=== PATIENT | female | born 1935 | race Caucasian/White ===

== ENCOUNTER 2018-08-14 22:11 | Emergency (ER) | payer BC ==
--- NOTE | 2018-08-14 22:30 | Emergency Department Record ---
History of Present Illness - General Chief Complaint: Cough Stated Complaint: COUGH, HE Time Seen by Provider: 08/14/18 22:28 Source: Patient, Family (son) - History of Present Illness Initial Comments: The patient and her son state that she has had a cough for a week. She states it is worse than her typical common cold symptoms because she is coughing so much she has to get upright to stop her coughing. She has clear rhinorrhea, no sore throat, no chest pain or heaviness. She states she is slightly short of breath only with coughing spasms. Her son reports that she came home from [facility] and was wheezing and short of breath. The patient denies history of pneumonia, ND, CVA, hypertension or DM. She has never had blood clots to her legs or lungs, however her ankles are chronically swollen, right greater than left, and this is not new. She has never smoked. She also reports one episode of diarrhea this evening. MD Complaint: Cough, Rhinorrhea - Related Data Home Medications Medication Instructions Recorded Confirmed Last Taken Multivitamin [Multiple Vitamins] 1 each PO DAILY 08/14/18 08/14/18 08/14/18 Previous Rx's Medication Instructions Recorded Azithromycin [Zithromax] 250 mg PO DAILY #4 tab 08/15/18 Allergies Allergy/AdvReac Type Severity Reaction Status Date / Time No Known Drug Allergies Allergy Verified 08/14/18 22:30 Review of Systems Reviewed: No additional complaints except as noted below Constitutional: Reports: As per HPI. Denies: Chills, Fever, Malaise, Night sweats, Weakness, Weight change Eyes: Reports: As per HPI. Denies: Eye discharge, Eye pain, Photophobia, Vision change ENT: Reports: As per HPI. Denies: Congestion, Dental pain, Ear pain, Epistaxis , Hearing loss, Throat pain Respiratory: Reports: As per HPI. Denies: Cough, Dyspnea, Hemoptysis, Stridor, Wheezes Cardiovascular: Reports: As per HPI. Denies: Arrhythmia, Chest pain, Dyspnea on exertion, Edema, Murmurs, Orthopnea, Palpitations, Paroxysmal nocturnal dyspnea, Rheumatic Fever, Syncope Endocrine: Reports: As per HPI. Denies: Fatigue, Heat or cold intolerance, Polydipsia, Polyuria Gastrointestinal: Reports: As per HPI. Denies: Abdominal pain, Constipation, Diarrhea, Hematemesis, Hematochezia, Melena, Nausea, Vomiting Genitourinary: Reports: As per HPI. Denies: Abnormal menses, Discharge, Dyspareunia, Dysuria, Frequency, Hematuria, Incontinence, Retention, Urgency Musculoskeletal: Reports: As per HPI. Denies: Arthralgia, Back pain, Gout, Joint swelling, Myalgia, Neck pain Skin: Reports: As per HPI. Denies: Bruising, Change in color, Change in hair/ nails, Lesions, Pruritus, Rash Neurological: Reports: As per HPI. Denies: Abnormal gait, Confusion, Headache, Numbness, Paresthesias, Seizure, Tingling, Tremors, Vertigo, Weakness Psychiatric: Reports: As per HPI. Denies: Anxiety, Auditory hallucinations, Depression, Homicidal thoughts, Suicidal thoughts, Visual hallucinations Hematological/Lymphatic: Reports: As per HPI. Denies: Anemia, Blood Clots, Easy bleeding, Easy bruising, Swollen glands Past Medical History - SOCIAL HISTORY Smoking Status: Never smoker Physical Exam - General General Appearance: Alert, Oriented x3, Cooperative, No acute distress (No disress unless coughing which produces increased wheezing) - Head Head exam: Normal inspection - Eye Eye exam: Normal appearance, PERRL, EOMI. negative: Conjunctival injection, Nystagmus Pupils: Normal accommodation - ENT ENT exam: Normal exam, Mucous membranes moist, Normal external ear exam, Normal orophraynx, TM's normal bilaterally Ear exam: Normal external inspection. negative: External canal tenderness Nasal Exam: Normal inspection. negative: Discharge, Sinus tenderness Mouth exam: Normal external inspection, Tongue normal Teeth exam: Normal inspection. negative: Dental caries Throat exam: Normal inspection. negative: Tonsillar erythema, Tonsillar exudate - Neck Neck exam: Normal inspection, Full ROM. negative: Lymphadenopathy, Meningismus , Tenderness - Respiratory Respiratory exam: Decreased breath sounds, Prolonged expiratory, Wheezes ( expiratory). negative: Accessory muscle use, Chest wall tenderness, Respiratory distress - Cardiovascular Cardiovascular Exam: Regular rate, Normal rhythm, Normal heart sounds - GI/Abdominal GI/Abdominal exam: Soft, Normal bowel sounds. negative: Tenderness - Rectal Rectal exam: Deferred - exam: Deferred - Extremities Extremities exam: Normal inspection, Full ROM, Normal capillary refill, Pedal edema (chronc bilateral pitting edema (unchanged per patient).). negative: Calf tenderness, Tenderness - Back Back exam: Reports: Normal inspection, Full ROM. Denies: Muscle spasm, Rash noted, Tenderness - Neurological Neurological exam: Alert, Normal gait, Oriented X3, Reflexes normal - Psychiatric Psychiatric exam: Normal affect, Normal mood - Skin Skin exam: Dry, Intact, Normal color, Warm Course Vital Signs 08/14/18 22:19 Temperature 98.4 F Pulse Rate [ 96 H Left] Respiratory 16 Rate Blood Pressure 189/100 [Left Arm] Pulse Ox 94 L - Reevaluation(s) Reevaluation #1: Patient returned from CT. Antibiotics infusing, blood pressure improved, RA sats now 96%. Patient is feeling much better. 08/15/18 00:50 08/15/18 01:38 Medical Decision Making - Management Options MDM Management: No Additional Work-up Planned - Data Complexity MDM Data: Labs Ordered and/or Reviewed (BNP 37, trop <0.01, d dimer 0.60 ), X- Ray Ordered and/or Reviewed (CTA per [facility]: Neg PE. RML collapse, cannot exclude pneumonitis; ring enhancing lesion posterior R liver lobe, FU CT or MRI 6 months. Additional nonacute findings also noted on full reeport.), EKG Ordered and/or Reviewed - Lab Data Result diagrams: 08/14/18 23:35 08/14/18 23:35 - EKG Data -: EKG Interpreted by Me EKG: No Acute Changes (NSR 84/min; nl axis. IVCD, no ST elevation or acute changes. no prior.) Disposition Disposition: Discharge Clinical Impression: RML pneumonia Qualifiers: Pneumonia type: due to unspecified organism Qualified Code(s): J18.1 - Lobar pneumonia, unspecified organism Disposition: Home, Self-Care Condition: (2) Stable Instructions: Cold Symptoms (ED), Pneumonitis (ED) Additional Instructions: Continue zithromax as directed until gone. Albuterol Inhaler with Spacer 2 puffs two times daily to 4 times daily. Tylenol alternated with ibuprofen as directed as needed for fevers or pain. Follow up with PCP as previously arranged in office within the week for follow up and for re heck of blood pressure. PCP referral as requested for follow up locally in the future. Prescriptions: Azithromycin [Zithromax] 250 mg PO DAILY #4 tab Forms: Patient Portal Access Quality - Quality Measures Quality Measures: N/A - Blood Pressure Screening Does Patient Have Any of the Following: No Blood Pressure Classification: Hypertensive Reading Systolic Measurement: 173 Diastolic Measurement: 68 Screening for High Blood Pressure: < First Hypertensive BP, F/U Documented > [ G8950] First Hypertensive Follow-up Interventions: Follow-up with rescreen GT 1 day and LT 4 weeks., Referral to alternative/primary care provider.
[2018-08-14] MEDS ORDERED: IPRATROPIUM/ALBUTEROL (0.5MG/3MG) NEB INH ONE (23:08)
[2018-08-14 23:38] LABS: URINE APPEARANCE CLOUDY; URINE BILIRUBIN NEGATIVE (NEGATIVE); URINE BLOOD MODERATE (NEGATIVE); URINE COLOR YELLOW; URINE GLUCOSE (UA) NEGATIVE (NEGATIVE); URINE KETONE NEGATIVE (NEGATIVE); URINE LEUKOCYTE ESTERASE MODERATE (NEGATIVE); URINE NITRITE POSITIVE (NEGATIVE); URINE UROBILINOGEN 0.2 E.U./dL (0.20 - 1.00)
[2018-08-14 23:41] LABS: BASO % 1.1 % (0-6); EOS % 6.7 % (0-6); GRAN % 66.1 % (47-80); HEMATOCRIT 44.6 % (35.0-47.0); LYMPH % 14.8 % (16-45); MEAN CELL VOLUME 86.6 fl (81-97); MEAN CORPUSCULAR HEMOGLOBIN 29.1 pg (27-33); MEAN CORPUSCULAR HGB CONC 33.6 g/dl (32-36); MEAN PLATELET VOLUME 9.9 fl (7.4-10.4); MONO % 11.3 % (0-9); PLATELET COUNT 265 K/uL (130-400); RED BLOOD COUNT 5.15 M/uL (3.80-5.40); RED CELL DISTRIBUTION WIDTH 13.3 % (11.5-14.5); WHITE BLOOD COUNT W/O DIFF 6.6 K/uL (4.2-12.2)
[2018-08-14 23:45] LABS: URINE BACTERIA 3+; URINE RBC 0 - 2 (NONE SEEN)
[2018-08-14] MEDS ORDERED: 0.9 % SODIUM CHLORIDE 500ML 500 ML IV SCH (23:45)
[2018-08-14 23:46] LABS: BLOOD UREA NITROGEN 15 mg/dL (8-23); CREATININE 0.8 mg/dL (0.5-0.9); EST GLOMERULAR FILTRATION RATE > 60 mL/min
[2018-08-14 23:47] LABS: TOTAL PROTEIN 7.3 g/dL (6.6-8.7)
[2018-08-14 23:49] LABS: GLUCOSE,RANDOM 127 mg/dL (74-109)
[2018-08-14 23:51] LABS: ALT/SGPT 41 U/L (<33)
[2018-08-14 23:52] LABS: ALB/GLOB RATIO 1.7 (1.1-1.8); ALBUMIN 4.6 g/dL (4.0-5.0); ALKALINE PHOSPHATASE 75 U/L (35-104); AST/SGOT 32 U/L (10.0-35.0); INR 1.1; PARTIAL THROMBOPLASTIN TIME 27.5 SECONDS (24.5-39.1); PROTHROMBIN TIME (PATIENT) 10.6 SECONDS (9.5-12.1)
[2018-08-14 23:54] LABS: NTpro B-NATRIURETIC PEPTIDE 37.83 pg/mL (<450)
[2018-08-14] MEDS ORDERED: CEFTRIAXONE SODIUM 2 GM in 0.9 % SODIUM CHLORIDE 100ML 100 ML IVPB ONE (23:55)
[2018-08-14 23:56] LABS: INFLUENZA A NEGATIVE (NEGATIVE); INFLUENZA B NEGATIVE (NEGATIVE)
[2018-08-15] MEDS ORDERED: ALBUTEROL HFA 8 GM INHALER INH ONE (01:25)
[2018-08-15] MEDS ORDERED: AZITHROMYCIN 500 MG TABLET PO ONE (01:25)
== END 2018-08-15 02:05 | disposition home or self-care (01) ==
LOC: ER 22:11
DX: J18.1 Lobar pneumonia, unspecified organism (principal); R60.0 Localized edema; R19.7 Diarrhea, unspecified; R79.89 Other specified abnormal findings of blood chemistry; K76.9 Liver disease, unspecified
CPT/HCPCS: 71275; 80053; 81001; 83880; 84484; 85025; 85379; 85610; 85730; 87400; 93005; 93010; 94640; 94664; 96374; 99284; J7040

== ENCOUNTER 2018-09-03 13:04 | Emergency (ER) | payer BC ==
[2018-09-03] MEDS ORDERED: SODIUM CHLORIDE 0.9% 500 ML IV ONE (13:28)
[2018-09-03 13:45] LABS: HEMATOCRIT 44.2 % (35.0-47.0); HEMOGLOBIN 15.2 gm/dl (11.6-16.0); MEAN CELL VOLUME 84.5 fl (81-97); MEAN CORPUSCULAR HEMOGLOBIN 29.1 pg (27-33); MEAN CORPUSCULAR HGB CONC 34.4 g/dl (32-36); MEAN PLATELET VOLUME 10.6 fl (7.4-10.4); PLATELET COUNT 303 K/uL (130-400); RED BLOOD COUNT 5.23 M/uL (3.80-5.40); RED CELL DISTRIBUTION WIDTH 12.9 % (11.5-14.5); WHITE BLOOD COUNT W/O DIFF 12.4 K/uL (4.2-12.2)
[2018-09-03 13:57] LABS: BLOOD UREA NITROGEN 18 mg/dL (8-23); CREATININE 0.8 mg/dL (0.5-0.9); EST GLOMERULAR FILTRATION RATE > 60 mL/min
[2018-09-03 13:58] LABS: LIPASE 34 U/L (13-60); TOTAL PROTEIN 6.9 g/dL (6.6-8.7)
[2018-09-03 14:00] LABS: GLUCOSE,RANDOM 161 mg/dL (74-109)
[2018-09-03 14:02] LABS: ALT/SGPT 42 U/L (<33)
[2018-09-03 14:03] LABS: ALB/GLOB RATIO 1.8 (1.1-1.8); ALBUMIN 4.4 g/dL (4.0-5.0); ALKALINE PHOSPHATASE 71 U/L (35-104); AST/SGOT 31 U/L (10.0-35.0)
[2018-09-03] MEDS ORDERED: MORPHINE SULFATE 10 MG/ML VIAL IVP ONE (14:08)
[2018-09-03] MEDS ORDERED: ONDANSETRON HCL IV 4 MG/2 ML VIAL IVP ONE ×2 (14:12→18:18)
--- NOTE | 2018-09-03 16:18 | Emergency Department Record ---
History of Present Illness - General Chief Complaint: Abdominal Pain Stated Complaint: ABDOMINAL PAIN Time Seen by Provider: 09/03/18 13:25 Source: Patient, Family Mode of Arrival: Ambulatory Limitations: No limitations - History of Present Illness Initial Comments: pt c/o right ap and diarrhea. she has nausea. she was here a few weeks ago and had achest cta with multiple findings includdin a mass on th thyroid that is pushing on her trachea and almost total occlusion of her r bronchus Complaint: Abdominal pain Onset/Timin -: Hour(s) Location: Other Quality: Aching Consistency: Intermittent Improves With: Nothing Worsens With: Nothing Associated Symptoms: Diarrhea, Nausea, Vomiting - Related Data Patient : No Home Medications Medication Instructions Recorded Confirmed Last Taken Omeprazole [Prilosec] 20 mg PO DAILY 09/03/18 09/03/18 09/02/18 Allergies Allergy/AdvReac Type Severity Reaction Status Date / Time No Known Drug Allergies Allergy Verified 09/03/18 13:08 Travel Screening - Travel/Exposure Within Last 30 Days Have you traveled within the last 30 days?: No - Travel/Exposure Within Last Year Have you traveled outside the [place] in the last year?: No - Additonal Travel Details Have you been exposed to anyone with a communicable illness?: No - Travel Symptoms Symptom Screening: None Review of Systems Reviewed: No additional complaints except as noted below Constitutional: Reports: As per HPI. Denies: Chills, Fever, Malaise, Night sweats, Weakness, Weight change Eyes: Reports: As per HPI. Denies: Eye discharge, Eye pain, Photophobia, Vision change ENT: Reports: As per HPI, Throat pain. Denies: Congestion, Dental pain, Ear pain, Epistaxis, Hearing loss Respiratory: Reports: As per HPI, Dyspnea. Denies: Cough, Hemoptysis, Stridor, Wheezes Cardiovascular: Reports: As per HPI. Denies: Arrhythmia, Chest pain, Dyspnea on exertion, Edema, Murmurs, Orthopnea, Palpitations, Paroxysmal nocturnal dyspnea, Rheumatic Fever, Syncope Endocrine: Reports: As per HPI. Denies: Fatigue, Heat or cold intolerance, Polydipsia, Polyuria Gastrointestinal: Reports: As per HPI, Abdominal pain, Diarrhea, Nausea, Vomiting. Denies: Constipation, Hematemesis, Hematochezia, Melena Genitourinary: Reports: As per HPI. Denies: Abnormal menses, Discharge, Dyspareunia, Dysuria, Frequency, Hematuria, Incontinence, Retention, Urgency Musculoskeletal: Reports: As per HPI. Denies: Arthralgia, Back pain, Gout, Joint swelling, Myalgia, Neck pain Skin: Reports: As per HPI. Denies: Bruising, Change in color, Change in hair/ nails, Lesions, Pruritus, Rash Neurological: Reports: As per HPI. Denies: Abnormal gait, Confusion, Headache, Numbness, Paresthesias, Seizure, Tingling, Tremors, Vertigo, Weakness Psychiatric: Reports: As per HPI. Denies: Anxiety, Auditory hallucinations, Depression, Homicidal thoughts, Suicidal thoughts, Visual hallucinations Hematological/Lymphatic: Reports: As per HPI. Denies: Anemia, Blood Clots, Easy bleeding, Easy bruising, Swollen glands Past Medical History - SOCIAL HISTORY Smoking Status: Never smoker Alcohol Use: None Drug Use: None - RESPIRATORY Hx Respiratory Disorders: No - CARDIOVASCULAR Hx Cardio Disorders: No - NEURO Hx Neuro Disorders: No - GI Hx GI Disorders: No - Hx Genitourinary Disorders: No - ENDOCRINE Hx Endocrine Disorders: No - MUSCULOSKELETAL Hx Musculoskeletal Disorders: No - PSYCH Hx Psych Problems: Yes Hx Anxiety: Yes - HEMATOLOGY/ONCOLOGY Hx Hematology/Oncology Disorders: No Family Medical History Any Significant Family History?: Yes Hx Heart Disease: Grandparents Physical Exam - General General Appearance: Alert, Oriented x3, Cooperative, Mild distress - Head Head exam: Normal inspection - Eye Eye exam: Normal appearance, PERRL, EOMI Pupils: Normal accommodation - ENT ENT exam: Normal exam, Mucous membranes moist, Normal external ear exam, Normal orophraynx Ear exam: Normal external inspection. negative: External canal tenderness Nasal Exam: Normal inspection. negative: Discharge, Sinus tenderness Mouth exam: Normal external inspection, Tongue normal Teeth exam: Normal inspection. negative: Dental caries Throat exam: Normal inspection. negative: Tonsillar erythema, Tonsillar exudate - Neck Neck exam: Normal inspection, Full ROM. negative: Tenderness - Respiratory Respiratory exam: Normal lung sounds bilaterally. negative: Respiratory distress - Cardiovascular Cardiovascular Exam: Regular rate, Normal rhythm, Normal heart sounds - GI/Abdominal GI/Abdominal exam: Soft, Normal bowel sounds, Tenderness (ruq and rlq) - Rectal Rectal exam: Deferred - exam: Deferred - Extremities Extremities exam: Normal inspection, Full ROM, Normal capillary refill. negative: Tenderness - Back Back exam: Reports: Normal inspection, Full ROM. Denies: Muscle spasm, Rash noted, Tenderness - Neurological Neurological exam: Alert, CN II-XII intact, Normal gait, Oriented X3 - Psychiatric Psychiatric exam: Normal affect, Normal mood - Skin Skin exam: Dry, Intact, Normal color, Warm Course Vital Signs 09/03/18 09/03/18 13:10 13:47 Temperature 98.4 F 98.4 F Pulse Rate 83 83 Respiratory 20 20 Rate Blood Pressure 202/109 Pulse Ox 95 95 Medical Decision Making - Lab Data Result diagrams: 09/03/18 13:25 09/03/18 13:25 Lab Results 09/03/18 09/03/18 Range/Units 13:25 13:25 WBC 12.4 H (4.2-12.2) K/uL RBC 5.23 (3.80-5.40) M/uL Hgb 15.2 (11.6-16.0) gm/dl Hct 44.2 (35.0-47.0) % MCV 84.5 (81-97) fl MCH 29.1 (27-33) pg MCHC 34.4 (32-36) g/dl RDW 12.9 (11.5-14.5) % Plt Count 303 (130-400) K/uL MPV 10.6 H (7.4-10.4) fl Neutrophils % 87.0 H (47-80) % Eosinophils % Not Reportable Basophils % Not Reportable Lymphocytes 9.0 L (16-45) % Monocytes 3.0 (0-9) % Eosinophil Count 1.0 (0-6) % Sodium 141 (136-145) mmol/L Potassium 3.8 (3.4-4.5) mmol/L Chloride 106 (98-107) mmol/L Carbon Dioxide 23.0 (22-29) mmol/L Anion Gap 12.0 (7-16) BUN 18 (8-23) mg/dL Creatinine 0.8 (0.5-0.9) mg/dL Estimated GFR > 60 mL/min Random Glucose 161 H (74-109) mg/dL Calcium 9.4 (8.8-10.2) mg/dL Total Bilirubin 0.40 (0.2-1.0) mg/dL AST 31 (10.0-35.0) U/L ALT 42 H (<33) U/L Alkaline Phosphatase 71 (35-104) U/L Total Protein 6.9 (6.6-8.7) g/dL Albumin 4.4 (4.0-5.0) g/dL Globulin 2.5 (1.4-4.8) gm/dL Albumin/Globulin Ratio 1.8 (1.1-1.8) Lipase 34 (13-60) U/L Disposition Disposition: Transfer Clinical Impression: Thyroid mass of unclear etiology, Bronchial obstruction, Pyelonephritis Hydronephrosis Qualifiers: Hydronephrosis type: with ureteral calculous obstruction Qualified Code(s): N13.2 - Hydronephrosis with renal and ureteral calculous obstruction Hypertension Qualifiers: Hypertension type: unspecified Qualified Code(s): I10 - Essential (primary) hypertension Disposition: Acute Care Hospital Transfer Transfer To: [facility] Reason For Transfer: needs, urologist, sterilization tech, ENT Accepting Physician: dr hernandez Time Discussed w/Accepting Physician: 17:02 Quality - Quality Measures Quality Measures: N/A - Blood Pressure Screening Does Patient Have Any of the Following: No Blood Pressure Classification: Hypertensive Reading Systolic Measurement: 202 Diastolic Measurement: 109 Screening for High Blood Pressure: < First Hypertensive BP, F/U Documented > [ G8950] First Hypertensive Follow-up Interventions: Follow-up with rescreen GT 1 day and LT 4 weeks.
[2018-09-03] MEDS ORDERED: ACETAMINOPHEN 1,000 MG/100 ML BTL IVPB ONE (16:24)
[2018-09-03] MEDS ORDERED: CLONIDINE HCL 0.1 MG TABLET PO ONE (16:44)
[2018-09-03] MEDS ORDERED: METHYLPREDNISOLONE PF 125MG/VIAL IVP ONE (16:57)
[2018-09-03 17:46] LABS: URINE APPEARANCE CLEAR; URINE BILIRUBIN NEGATIVE (NEGATIVE); URINE BLOOD SMALL (NEGATIVE); URINE COLOR YELLOW; URINE GLUCOSE (UA) NEGATIVE (NEGATIVE); URINE KETONE NEGATIVE (NEGATIVE); URINE LEUKOCYTE ESTERASE TRACE (NEGATIVE); URINE NITRITE POSITIVE (NEGATIVE); URINE UROBILINOGEN 0.2 E.U./dL (0.20 - 1.00)
[2018-09-03 17:57] LABS: URINE WBC 16 - 20 (0-2/hpf)
[2018-09-03 17:58] LABS: URINE BACTERIA 3+; URINE EPITHELIAL CELLS 0 - 2 (FEW)
[2018-09-03] MEDS ORDERED: CIPROFLOXACIN LACTATE/D5W 400 MG/200 ML BAG IVPB ONE (18:02)
--- NOTE | 2018-09-05 12:40 | CT SCAN REPORT ---
EXAM: CT OF THE ABDOMEN AND PELVIS WITH AND WITHOUT CONTRAST HISTORY: RIGHT SIDED ABDOMINAL PAIN, DIARRHEA, INCIDENTAL LIVER LESION ON RECENT CTA CHEST. TECHNIQUE: CT of the abdomen and pelvis was performed with 100 ml Omnipaque 300 intravenous contrast as well as oral contrast. Comparison: CTA chest 08/15/18. FINDINGS: Persistent right middle lobe atelectasis with associated calcifications, similar from prior CTA. Mild dependent atelectasis in both lower lobes. Small hiatal hernia. Low hepatic attenuation on noncontrast images, compatible with steatosis. Enhancing 12 mm lesion in the right hepatic dome, predominantly peripheral arterial enhancement with retained contrast on delayed phase imaging, most suggestive of a hemangioma. Scattered calcified liver granulomas. Unremarkable appearance of the gallbladder, spleen, and right adrenal gland. Stable left adrenal adenoma. Moderate right hydronephrosis. No left hydronephrosis. Bilateral intrarenal calculi, measuring up to 5 mm on the right and 4 mm on the left. At the right ureteral vesicular junction there is a 3 mm calcification.l Prominent soft tissue density. Bladder wall thickening at the level of the right ureteral vesicular junction. A fat density is noted along the anterior bladder wall, of uncertain significance. Underdistended, borderline thickened appearance of the colon extending from the proximal transverse colon through the rectum. Likely normal appendix. The stomach and small bowel are not dilated. No free air. Diffuse calcification of the aortoiliac arterial access without aneurysm or dissection. Multilevel thoracolumbar spine degenerative findings. Bilateral femoroacetabular joint arthrosis. No acute osseous findings. Small ovoid 11 mm lucent lesion in the right iliac bone (series 5 image 121). IMPRESSION: 1. MODERATE RIGHT HYDROURETERONEPHROSIS WITH LIKELY SMALL 3 MM CALCULUS AT THE RIGHT URETERAL VESICULAR JUNCTION. PROMINENT SOFT TISSUE THICKENING AT THE RIGHT UVJ IS NOTED, AND A BLADDER WALL NEOPLASM IS NOT EXCLUDED. RECOMMEND FURTHER EVALUATION WITH CYSTOSCOPY. 2. ADDITIONAL BILATERAL NONOBSTRUCTING INTRARENAL CALCULI. 3. SUGGESTION OF MILD NONSPECIFIC COLITIS EXTENDING FROM THE PROXIMAL TRANSVERSE COLON THROUGH THE RECTUM. 4. HEPATIC STEATOSIS. ENHANCING HEPATIC DOME LESION HAS FEATURES MOST SUGGESTIVE OF A HEMANGIOMA. 5. FLUID WITHIN THE UTERINE ENDOMETRIAL CAVITY, LIKELY ABNORMAL FOR PATIENT AGE. FURTHER GYNECOLOGIC EVALUATION IS RECOMMENDED. 6. PERSISTENT RIGHT MIDDLE LOBE OBSTRUCTIVE ATELECTASIS, SEEN ON CTA CHEST FROM 08/15/18. FURTHER EVALUATION WITH BRONCHOSCOPY MAY BE OF BENEFIT. 7. INDETERMINATE 11 MM LUCENT LESION IN THE RIGHT ILIAC BONE. 8. STABLE LEFT ADRENAL ADENOMA. 9. SMALL HIATAL HERNIA. JOB NUMBER: [id number] [facility]
== END 2018-09-03 19:37 | disposition short-term general hospital (02) ==
LOC: ER 13:04
DX: N13.6 Pyonephrosis (principal); J98.09 Other diseases of bronchus, not elsewhere classified; E07.9 Disorder of thyroid, unspecified; R10.31 Right lower quadrant pain; R19.7 Diarrhea, unspecified; R11.0 Nausea; I10 Essential (primary) hypertension
CPT/HCPCS: 74178; 80053; 81001; 83690; 85027; 96365; 96366; 96375; 96376; 99285; J2270; J2405; J2930

== ENCOUNTER 2018-12-13 11:16 | Emergency (ER) | payer BC ==
--- NOTE | 2018-12-13 11:35 | Emergency Department Record ---
History of Present Illness - General Chief complaint: Female Urogenital Problem Stated complaint: URINARY TRACT INFECTION Time Seen by Provider: 12/13/18 11:33 Source: Patient, RN notes reviewed Mode of Arrival: Ambulatory - History of Present Illness Initial comments: patient is here because son is worried about spots on her face white spots that don't look like mersa on her face and her lower lip is swollen and she has a scrap on the chest which doesn't look infected. Talked about MERSA with son and she has a complicated case of sepsis and treated at [facility] and stents placed in the right kidney and than a replacement stent placed last sunday by Dr Stern which will be removed December 18 per son. Patient only able to remember two of three items at the bedside after 5 minutes. Moving all extremities appropriately and to commands and son is answering all the questions for her. - Related Data Home Medications Medication Instructions Recorded Confirmed Last Taken Fluconazole [Diflucan] 100 mg PO DAILY 12/13/18 12/13/18 Unknown Furosemide [Lasix] 40 mg PO DAILY 12/13/18 12/13/18 Unknown Gluc Alonso/Chondro Alonso A/Vit C/Mn 1 each PO DAILY 12/13/18 12/13/18 Unknown [Glucosamine-Chondroitin Cap] Hydralazine HCl 50 mg PO BID 12/13/18 12/13/18 Unknown Metoprolol Succinate 50 mg PO DAILY 12/13/18 12/13/18 Unknown Nitrofurantoin Macrocrystal 100 mg PO BID 12/13/18 12/13/18 Unknown [Nitrofurantoin] Potassium Chloride [Klor-Con] 20 meq PO DAILY 12/13/18 12/13/18 Unknown Tramadol HCl [Ultram] 50 mg PO BID 12/13/18 12/13/18 Unknown Previous Rx's Medication Instructions Recorded Acyclovir [Zovirax] 1 apply TP 5XD #15 gm 12/13/18 Doxycycline Hyclate 100 mg PO BID #20 cap 12/13/18 Allergies Allergy/AdvReac Type Severity Reaction Status Date / Time amlodipine [From [facility]] Allergy PT UNSURE Verified 12/13/18 12:07 OF REACTION lisinopril Allergy PT UNSURE Verified 12/13/18 12:07 OF REACTION Past Medical History - SOCIAL HISTORY Smoking Status: Never smoker Drug Use: None - RESPIRATORY Hx Respiratory Disorders: No - CARDIOVASCULAR Hx Cardio Disorders: No - NEURO Hx Neuro Disorders: No - GI Hx GI Disorders: No - Hx Genitourinary Disorders: No - ENDOCRINE Hx Endocrine Disorders: No - MUSCULOSKELETAL Hx Musculoskeletal Disorders: No - PSYCH Hx Psych Problems: Yes Hx Anxiety: Yes - HEMATOLOGY/ONCOLOGY Hx Hematology/Oncology Disorders: No Family Medical History Hx Heart Disease: Grandparents Physical Exam - General General Appearance: Alert, Oriented x3, Cooperative, No acute distress - Head Head exam: Normal inspection - Eye Eye exam: Normal appearance, PERRL Pupils: Normal accommodation - ENT ENT exam: Normal exam, Mucous membranes moist, Normal external ear exam, Normal orophraynx, TM's normal bilaterally Ear exam: Normal external inspection. negative: External canal tenderness Nasal Exam: Normal inspection. negative: Discharge, Sinus tenderness Mouth exam: Normal external inspection, Tongue normal Teeth exam: Normal inspection. negative: Dental caries Throat exam: Normal inspection. negative: Tonsillar erythema, Tonsillar exudate - Neck Neck exam: Normal inspection, Full ROM. negative: Tenderness - Respiratory Respiratory exam: Normal lung sounds bilaterally. negative: Respiratory distress - Cardiovascular Cardiovascular Exam: Regular rate, Normal rhythm, Normal heart sounds - GI/Abdominal GI/Abdominal exam: Soft, Normal bowel sounds. negative: Tenderness - Rectal Rectal exam: Deferred - exam: Deferred - Extremities Extremities exam: Normal inspection, Full ROM, Normal capillary refill. negative: Tenderness - Back Back exam: Reports: Normal inspection, Full ROM. Denies: Muscle spasm, Rash noted, Tenderness - Neurological Neurological exam: Alert, Normal gait, Oriented X3, Reflexes normal - Psychiatric Psychiatric exam: Normal affect, Normal mood - Skin Skin exam: Dry, Intact, Normal color, Warm Course - Reevaluation(s) Reevaluation #1: reviewed her urine from 11/15/2018 and MRSA sensitive to nitrofurantoin and te tracyline and linezolid. Patient not toxix and she is moving around appropriately with signs of dementia. She doesn't appear toxic at this time. will add doxy 100 mg bid with the nitrofurantoin to make sure the staph is covered and have her keepher appointment with Dr Stern urologguerda. If worse will d irect her to [facility] 12/13/18 14:09 12/13/18 14:11 Medical Decision Making - Data Complexity MDM Data: Labs Ordered and/or Reviewed (WBC 23,500) - Lab Data Result diagrams: 12/13/18 12:42 12/13/18 12:42 Disposition Clinical Impression: Elevated WBCs Qualifiers: Leukocytosis type: unspecified Qualified Code(s): D72.829 - Elevated white blood cell count, unspecified UTI (urinary tract infection) Qualifiers: Urinary tract infection type: acute cystitis Hematuria presence: without hematuria Qualified Code(s): N30.00 - Acute cystitis without hematuria Disposition: Home, Self-Care Condition: (1) Good Instructions: Urinary Tract Infection in Women (ED) Additional Instructions: use neosporin ointment on the scap on her chest zovirax ointment on the lower lip follow up with Dr Stern as scheduled next week December [address] Nicole her primary at [facility] next week if worse return to [facility] for evaluation Prescriptions: Doxycycline Hyclate 100 mg PO BID #20 cap Acyclovir [Zovirax] 1 apply TP 5XD #15 gm Forms: Patient Portal Access Time of Disposition: 14:28 Quality - Quality Measures Quality Measures: N/A - Blood Pressure Screening Does Patient Have Any of the Following: No Blood Pressure Classification: Pre-Hypertensive BP Reading Systolic Measurement: 129 Diastolic Measurement: 71 Screening for High Blood Pressure: < Pre-Hypertensive BP, F/U Documented > [G8950] Pre-Hypertensive Follow-up Interventions: Referral to alternative/primary care provider.
[2018-12-13 12:49] LABS: URINE APPEARANCE CLEAR; URINE BILIRUBIN NEGATIVE (NEGATIVE); URINE BLOOD TRACE-I (NEGATIVE); URINE COLOR YELLOW; URINE GLUCOSE (UA) NEGATIVE (NEGATIVE); URINE KETONE NEGATIVE (NEGATIVE); URINE LEUKOCYTE ESTERASE MODERATE (NEGATIVE); URINE NITRITE NEGATIVE (NEGATIVE); URINE PROTEIN NEGATIVE (NEGATIVE); URINE UROBILINOGEN 0.2 E.U./dL (0.20 - 1.00)
[2018-12-13 13:02] LABS: URINE BACTERIA FEW; URINE EPITHELIAL CELLS 16 - 20 (FEW); URINE RBC 0 - 2 (NONE SEEN); URINE WBC 16 - 20 (0-2/hpf)
[2018-12-13 13:05] LABS: ABSOLUTE NEUTROPHIL COUNT 21.96; HEMATOCRIT 39.5 % (35.0-47.0); MEAN CELL VOLUME 83.7 fl (81-97); MEAN CORPUSCULAR HEMOGLOBIN 27.5 pg (27-33); MEAN CORPUSCULAR HGB CONC 32.9 g/dl (32-36); MEAN PLATELET VOLUME 10.9 fl (7.4-10.4); PLATELET COUNT 210 K/uL (130-400); RED BLOOD COUNT 4.72 M/uL (3.80-5.40); RED CELL DISTRIBUTION WIDTH 13.7 % (11.5-14.5)
[2018-12-13 13:07] LABS: WHITE BLOOD COUNT W/O DIFF 23.5 K/uL (4.2-12.2)
[2018-12-13 13:14] LABS: PLATELET ESTIMATE NORMAL (NORMAL)
== END 2018-12-13 14:51 | disposition home or self-care (01) ==
LOC: ER 11:16
DX: N30.00 Acute cystitis without hematuria (principal); D72.829 Elevated white blood cell count, unspecified; K13.79 Other lesions of oral mucosa; F03.90 Unspecified dementia, unspecified severity, without behavioral disturbance, psychotic disturbance, mood disturbance, and anxiety
CPT/HCPCS: 70450; 80048; 81001; 85027; 99283